=== PATIENT | male | born 1955 | race Caucasian/White ===

== ENCOUNTER → 2024-03-10 | Emergency (ER) | payer MEDICARE ==
[~2024-03-10] VITALS: Ht 167.6 cm; Wt 65.9 kg
[2024-03-10 12:42] VITALS: TEMP 98.2
[2024-03-10 13:07] LABS: BASOPHILS % (AUTO) 0.6 % (0.0-2.0); EOSINOPHILS % (AUTO) 3.6 % (1.0-6.0); HEMATOCRIT 38.4 % (41-53); HEMOGLOBIN 13.1 g/dL (13.5-17.5); LYMPHOCYTES # (AUTO) 1.8 K/uL (1.0-4.8); LYMPHOCYTES % (AUTO) 24.7 % (22.0-44.0); MEAN CORPUSCULAR HEMOGLOBIN 34.2 pg (26.0-34.0); MEAN CORPUSCULAR HGB CONC 34.1 G/dL (31.0-37.0); MEAN CORPUSCULAR VOLUME 100 fL (80-100); MONOCYTES # (AUTO) 0.5 K/uL (0.1-1.0); MONOCYTES % (AUTO) 7.6 % (2.0-9.0); NEUTROPHILS # (AUTO) 4.5 K/uL (1.8-7.7); NEUTROPHILS % (AUTO) 63.5 % (40.0-70.0); PLATELET COUNT (AUTO) 262 K/uL (150-450); RED BLOOD CELL COUNT(AUTO) 3.83 MIL/uL (4.50-5.90); RED CELL DISTRIBUTION WIDTH 12.3 % (11.5-14.5); WHITE BLOOD COUNT (AUTO) 7.2 K/uL (4.5-11.0)
[2024-03-10] MEDS: ONDANSETRON HCL 4 MG/2 ML VIAL IVP ONE (13:08)
[2024-03-10] MEDS: PERTUSS(ACELL),DIPH,TET/PF 0.5 ML SYRINGE [ADULT] IM. ONE (13:08)
[2024-03-10] MEDS: FentaNYL CITRATE PF 100 MCG/2 ML VIAL IVP ONE (13:09)
[2024-03-10] MEDS: CeFAZolin 1 GM/DEXTROSE 50 ML IV ONE (13:10)
[2024-03-10 13:18] LABS: ANION GAP 7 mmol/L (8-16); CALCIUM, TOTAL 8.2 mg/dL (8.8-10.5); CARBON DIOXIDE 27 mmol/L (22-29); CHLORIDE 107 mmol/L (98-107); CREATININE 0.96 mg/dL (0.60-1.30); GLOMERULAR FILTR. RATE CALC > 60 mL/min (>60); GLUCOSE,RANDOM 108 mg/dL (70-110); POTASSIUM 3.7 mmol/L (3.5-5.1); SODIUM SERUM 141 mmol/L (136-145); UREA NITROGEN, BLOOD 17 mg/dL (7-18)
[2024-03-10 13:25] LABS: ALANINE AMINOTRANSFERASE 20 U/L (12-78); ALBUMIN 3.3 g/dL (3.4-5.0); ALKALINE PHOSPHATASE 88 U/L (46-116); ASPARTATE AMINOTRANSFERASE 19 U/L (15-37); BILIRUBIN,TOTAL 0.3 mg/dL (0.1-1.0); TOTAL PROTEIN, SERUM 6.2 g/dL (6.4-8.2)
[2024-03-10 13:33] LABS: PROTHROMBIN TIME 10.4 SEC (9.4-11.6)
[2024-03-10 13:50] VITALS: BP 186/100; PULSE 67; RESP 22; O2SAT 98
== END | disposition still patient (30) ==
LOC: EMS 12:43
DX: S71.111A Laceration without foreign body, right thigh, initial encounter (principal); W27.0XXA Contact with workbench tool, initial encounter; Y93.89 Activity, other specified; Y92.89 Other specified places as the place of occurrence of the external cause; Y99.8 Other external cause status
CPT/HCPCS: 99285; 96365; 96375; 80053; 85025; 85610; 85730; 36415; 73552; 90715; 90471; J0690; J3010; J2405